=== PATIENT | male | born 2000 | race Caucasian/White ===

== ENCOUNTER 2018-11-19 15:30 | Emergency (ER) | payer MEDICAID ==
[2018-11-19] MEDS ORDERED: IBUPROFEN 800 MG TABLET PO STA (15:38)
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
[2018-11-19 18:02] VITALS: BP 161/72
== END 2018-11-19 18:05 | disposition home or self-care (01) ==
LOC: ED 15:30
DX: S63.601A Unspecified sprain of right thumb, initial encounter (principal); S83.92XA Sprain of unspecified site of left knee, initial encounter; M25.531 Pain in right wrist; X50.9XXA Other and unspecified overexertion or strenuous movements or postures, initial encounter; Y93.55 Activity, bike riding
CPT/HCPCS: 73110; 73130; 73564; 99282; 99284; A9270